=== PATIENT | female | born 1950 | race Caucasian/White ===

== ENCOUNTER → 2016-11-27 | Outpatient (CLI) | payer BC ==
[~2016-11-27] MED LIST: ATEN-173 PO; CALC-343 PO; CHOL2000 PO; COEN100C3 PO; LEVO88TA3 PO; MULT-506 PO; OMEGCAP2 PO; ROSU5TAB PO
== END | disposition home or self-care (01) ==
LOC: C.PAPS 11:10
PROVIDERS: ATTEND Obstetrics & Gynecology
DX: Z01.419 Encounter for gynecological examination (general) (routine) without abnormal findings (principal)

== ENCOUNTER 2017-05-20 08:51 | Emergency (ER) | payer BC ==
[~2017-05-20] VITALS: Ht 161.3 cm; Wt 69.8 kg
[~2017-05-20 08:51] MED LIST changes: -ROSU5TAB PO
[2017-05-20 08:57] VITALS: TEMP 36.8; Ht 161.3 cm; Wt 69.8 kg
--- NOTE | 2017-05-20 09:49 | DIAGNOSTIC IMAGING REPORT ---
HEAD WITHOUT CONTRAST (CT) CLINICAL HISTORY: 66 years-old Female presenting with left head pain, no trauma. TECHNIQUE: Multidetector CT imaging of the head was performed without the use of intravenous contrast. IV contrast: None. A dose lowering technique was used consistent with the principles of ALARA (as low as reasonably achievable). COMPARISON: None. CT DOSE (mGy.cm): The estimated cumulative dose is 614.27 mGy.cm. FINDINGS: Legal Support Specialist topogram: Unremarkable. Ventricles and sulci normal in size. Brain parenchyma normal in appearance with preserved paredes-white differentiation. No mass effect or midline shift. No hemorrhage or acute territorial infarct. No extra-axial fluid collection. Paranasal sinuses and mastoid air cells clear. Calvarium intact. IMPRESSION: 1. No acute intracranial pathology. Electronically signed by: Lavelle Mays M.D. 05/20/2017 9:48 AM Dictated Date/Time: 05/20/2017 9:46 AM
--- NOTE | 2017-05-20 09:54 | EMERGENCY ROOM VISIT NOTE ---
ED Visit Note First contact with patient: 09:02 CHIEF COMPLAINT: Head pain HISTORY OF PRESENT ILLNESS: This 66-year-old female patient presents to the emergency department complaining of intermittent pain on the left side of her head since last night. The patient states she experiences waves of sharp pain which come and go on the left side of her head. The patient states the pain is always localized in this one area. The patient states she has experienced these pains before, however they've only happened once and went away. She states they did not come in waves like they're coming now. The patient states these pains in the past have been extremely intermittent, and reports they are maybe once or twice a month. The patient describes the pain as pulsations and rates them 5/10. The patient denies any neurological symptoms including blurry vision, dizziness, lightheadedness, confusion or altered mental status, nausea, vomiting. The patient denies neck pain. The patient states the pain does not radiate anywhere. The patient denies any recent fevers, chills, or other infectious symptoms. The patient states she is feeling "fuzzy" today, however she does attribute this to lack of sleep last night due to the pain. The patient states last night, she did take Tylenol, however has not experienced relief from this medication. The patient states she does not take Advil or aspirin because it car her stomach. The patient denies head injury. REVIEW OF SYSTEMS: A 10-system review of systems was performed with positives and pertinent negatives listed in the history of present illness. All other systems were reviewed and are negative. ALLERGIES: Metoprolol, Bactrim, simvastatin, atorvastatin, sulfa MEDICATIONS: Levothyroxine, atenolol, vitamin D, CoQ10, multivitamin, omega-3, Crestor PMH: Hypertension, hyperlipidemia, hypothyroidism SOCIAL HISTORY: The patient lives locally with her family. She denies drug, alcohol, tobacco use. PHYSICAL EXAM: VITALS: Vitals are noted on the nurse's note and reviewed by myself. Vital signs stable. GENERAL: This is a 66-year-old female, in no acute distress, nondiaphoretic, well-developed well-nourished. NEURO: The patient is alert, oriented to person place and time, and coherent. Normal mini mental status exam. Negative Romberg. Normal cerebellar function. HEAD: Normocephalic, Atraumatic. EYES: Pupils are equal round and reactive to light and accommodation. EOMs are full and optic discs and fundi are normal. There is no swelling or discoloration of the tissue surrounding the eyes. EARS: External auditory canals clear without blood. NOSE: Patent without tenderness. No septal hematoma. FACE: No facial tenderness. NECK: Supple. There is no cervical spine tenderness. The patient does not have tenderness with movement of the neck. RADIOLOGY: CT Head without Contrast: FINDINGS: Specimen Accessioner topogram: Unremarkable. Ventricles and sulci normal in size. Brain parenchyma normal in appearance with preserved paredes-white differentiation. No mass effect or midline shift. No hemorrhage or acute territorial infarct. No extra-axial fluid collection. Paranasal sinuses and mastoid air cells clear. Calvarium intact. IMPRESSION: 1. No acute intracranial pathology. EMERGENCY DEPARTMENT COURSE: The patient was seen and evaluated as above. CT scan of the patient's head was ordered and reviewed by myself and radiologist. This was negative for acute findings. CBC and PRP were ordered and reviewed by myself. These were without acute findings. I discussed the case with Dr. Jesus, who agrees with the assessment and plan for follow-up at this time. I discussed the results with the patient. The patient was discharged home in good condition. DIFFERENTIAL DIAGNOSIS: Intracranial hemorrhage, acute CVA, TIA, musculoskeletal pain, malignancy, closed head injury or concussion, migraines, headaches, and others. DIAGNOSIS: Head Pain DISCHARGE INSTRUCTIONS & TREATMENT: You were seen today for your headaches. We did a CT scan and basic labs, which did not reveal abnormalities at this time. This does not completely rule out the risk of a bleed, clot, or malignancy. You should be sure to follow up regarding your complaints. For pain control, you can use the following dffn-svc-cusokyy medicines (if >12 yo): - Extra strength (500mg/tab) Tylenol (acetaminophen) 2 tabs every 6-8 hours as needed. Do not exceed 6 tablets in a 24 hour period. Avoid taking more than 3 grams (3000 mg) of Tylenol per day. This includes any other sources of acetaminophen you may take on a regular basis. - Regular strength (200 mg/tab) Advil (ibuprofen) 1-2 tabs every 4-6 hours as needed. Do not exceed a dose of 3200 mg per day. Take this medication with food. Please follow-up with your PCP in 2-3 days for further evaluation and management after headaches. Please consider follow-up outpatient with neurology regarding your headaches. You were given the contact information for a local neurologist. Please return to the emergency department for further evaluation if you experience blurry vision, worsening headache, muffled hearing, dizziness, confusion, altered mental status, weakness, numbness, tingling chest pain, or difficulty breathing, or if you begin experiencing other concerning symptoms. Current/Historical Medications Scheduled Atenolol (Tenormin), 6.25 MG PO DAILY Cholecalciferol (Vitamin D3), 1 CAP PO QAM Coenzyme Q10 (Ubidecarenone) (Co Q-10), 100 MG PO QAM Levothyroxine Sodium (Levothyroxine Sodium), 1 TAB PO QAM Multivitamin (Multivitamin), 1 TAB PO QAM [place]-3 Fatty Acids (Fish Oil), 1 CAP PO QAM Rosuvastatin Calcium (Crestor), 5 MG PO Q2D Allergies Coded Allergies: Atorvastatin (Verified Allergy, Unknown, UNKNOWN, 05/12/16) Metoprolol (Verified Allergy, Unknown, SWELLING, 05/12/16) Sulfa Antibiotics (Verified Allergy, Unknown, RASH, 05/12/16) Sulfamethoxazole w/Trimethoprim (Verified Allergy, Unknown, RASH, 05/12/16) Simvastatin (Verified Adverse Reaction, Unknown, HEART PALPITATIONS AND MUSCLE CRAMPS, 05/12/16) Vital Signs Date Time Temp Pulse Resp B/P (MAP) Pulse Ox O2 Delivery O2 Flow Rate FiO2 05/20/17 11:10 63 18 124/78 94 05/20/17 10:33 63 18 124/78 94 Room Air 05/20/17 08:57 36.8 69 18 151/87 96 Room Air Laboratory Results 05/20/17 10:20 05/20/17 10:20 Test 05/20/17 10:20 Red Blood Count 5.23 M/uL (4.2-5.4) Mean Corpuscular Volume 89.7 fL (80-100) Mean Corpuscular Hemoglobin 29.8 pg (25-34) Mean Corpuscular Hemoglobin Concent 33.3 g/dl (32-36) RDW Standard Deviation 42.2 fL (36.4-46.3) RDW Coefficient of Variation 12.8 % (11.5-14.5) Mean Platelet Volume 12.6 fL (7.4-10.4) Anion Gap 4.0 mmol/L (3-11) Est Creatinine Clear Calc Drug Dose 65.5 ml/min Estimated GFR () 89.8 Estimated GFR (Non- 77.5 BUN/Creatinine Ratio 19.1 (10-20) Calcium Level 9.1 mg/dl (8.5-10.1) Medications Administered Medications (Trade) Dose Ordered Sig/[place] Route Start Time Stop Time Status Last Admin Dose Admin Acetaminophen (Tylenol Tab) 1,000 mg NOW STAT PO 05/20/17 10:20 05/20/17 10:21 DC 05/20/17 10:33 1,000 MG Departure Information Impression Primary Impression: Head pain Dispostion Home / Self-Care Condition GOOD Referrals Gregg Dave M.D. (PCP) Patient Instructions Headache Pain, My [facility] Additional Instructions You were seen today for your headaches. We did a CT scan and basic labs, which did not reveal abnormalities at this time. This does not completely rule out the risk of a bleed, clot, or malignancy. You should be sure to follow up regarding your complaints. For pain control, you can use the following teaw-din-exdpysa medicines (if >12 yo): - Extra strength (500mg/tab) Tylenol (acetaminophen) 2 tabs every 6-8 hours as needed. Do not exceed 6 tablets in a 24 hour period. Avoid taking more than 3 grams (3000 mg) of Tylenol per day. This includes any other sources of acetaminophen you may take on a regular basis. - Regular strength (200 mg/tab) Advil (ibuprofen) 1-2 tabs every 4-6 hours as needed. Do not exceed a dose of 3200 mg per day. Take this medication with food. Please follow-up with your PCP in 2-3 days for further evaluation and management after headaches. Please consider follow-up outpatient with neurology regarding your headaches. You were given the contact information for a local neurologist. Please return to the emergency department for further evaluation if you experience blurry vision, worsening headache, muffled hearing, dizziness, confusion, altered mental status, weakness, numbness, tingling chest pain, or difficulty breathing, or if you begin experiencing other concerning symptoms. Problem Qualifiers Primary Impression: Head pain Headache type: unspecified Headache chronicity pattern: acute headache Intractability: intractable Qualified Codes: R51 - Headache
[2017-05-20] MEDS ORDERED: ACETAMINOPHEN 500 MG TAB PO STA (10:20)
[2017-05-20 10:34] LABS: HEMATOCRIT 46.9 % (37-47); MEAN CELL VOLUME 89.7 fL (80-100); MEAN CORPUSCULAR HEMOGLOBIN 29.8 pg (25-34); MEAN CORPUSCULAR HGB CONC 33.3 g/dl (32-36); MEAN PLATELET VOLUME 12.6 fL (7.4-10.4); PLATELET COUNT 166 K/uL (130-400); RED BLOOD COUNT 5.23 M/uL (4.2-5.4); WHITE BLOOD COUNT 6.27 K/uL (4.8-10.8)
[2017-05-20 10:51] LABS: BUN/CREATININE RATIO 19.1 (10-20); CALCIUM 9.1 mg/dl (8.5-10.1); CREATININE 0.79 mg/dl (0.60-1.20)
[2017-05-20] MEDS ORDERED: ROSU5TAB PO (10:53)
[2017-05-20 11:10] VITALS: BP 124/78; PULSE 63; O2SAT 94
== END 2017-05-20 11:10 | disposition home or self-care (01) ==
LOC: C.EDB 08:52
DX: R51 Headache (principal); I10 Essential (primary) hypertension; E03.9 Hypothyroidism, unspecified; E78.5 Hyperlipidemia, unspecified; Z79.899 Other long term (current) drug therapy

== ENCOUNTER → 2017-07-05 | Outpatient (CLI) | payer BC ==
[~2017-07-05] MED LIST changes: -CALC-343 PO; +ROSU5TAB PO
== END | disposition home or self-care (01) ==
LOC: C.MAMM 10:43
PROVIDERS: ATTEND Family Medicine
DX: E78.5 Hyperlipidemia, unspecified (principal); M85.861 Other specified disorders of bone density and structure, right lower leg; M85.862 Other specified disorders of bone density and structure, left lower leg

== ENCOUNTER → 2017-08-09 | Outpatient (CLI) | payer BC ==
--- NOTE | 2017-08-12 07:46 | MAMMOGRAPHY REPORT ---
BILATERAL DIGITAL SCREENING MAMMOGRAM TOMOSYNTHESIS WITH CAD: 08/09/2017 CLINICAL HISTORY: Routine screening. Patient has no complaints. TECHNIQUE: Breast tomosynthesis in addition to standard 2D mammography was performed. Current study was also evaluated with a Computer Aided Detection (CAD) system. COMPARISON: Comparison is made to exams dated: 08/07/2016 mammogram, 08/06/2015 mammogram, 06/28/2014 mammogram, 06/27/2013 mammogram, 06/13/2010 mammogram, and 06/15/2011 mammogram - [facility] enter. BREAST COMPOSITION: The tissue of both breasts is almost entirely fatty. FINDINGS: There are mild vascular calcifications in the breasts, and a stable biopsy marker clip in the left upper outer quadrant. No suspicious mass, architectural distortion or cluster of microcalcif ications is seen. IMPRESSION: ACR BI-RADS CATEGORY 2: BENIGN There is no mammographic evidence of malignancy. A 1 year screening mammogram is recommended. The pa tient will receive written notification of the results. Approximately 10% of breast cancers are not detected with mammography. A negative mammographic report should not delay biopsy if a clinically suggestive mass is present. Nereyda Jimenes M.D. ay/:08/10/2017 16:35:45 Remotely Operated Vehicle: Zuleyka BARKER(Jacklyn)(Carlos), [facility] letter sent: Normal 1/2 BI-RADS Code: ACR BI-RADS Category 2: Benign
== END | disposition home or self-care (01) ==
LOC: C.MAMM 13:13
PROVIDERS: ATTEND Obstetrics & Gynecology
DX: Z12.31 Encounter for screening mammogram for malignant neoplasm of breast (principal)